=== PATIENT | female | born 1955 | race Caucasian/White ===

== ENCOUNTER 2022-05-28 12:31 | Outpatient (CLI) | payer MEDICARE | END 2022-05-28 12:32 | disposition home or self-care (01) | LOC: CSHCT 12:31 | PROVIDERS: ATTEND Internal Medicine | DX: R51.9 Headache, unspecified (principal); R42 Dizziness and giddiness | CPT/HCPCS: 70450 ==

== ENCOUNTER 2022-11-21 11:27 | Emergency (ER) | payer MEDICARE ==
[2022-11-21] MEDS ORDERED: Meclizine HCl 25 MG TAB ONE (12:15)
[2022-11-21] MEDS ORDERED: Dexamethasone 10 MG/ML VIAL ONE (12:15)
[2022-11-21] MEDS ORDERED: Lorazepam 2 MG/ML VIAL ONE (12:16)
[2022-11-21] MEDS ORDERED: Ondansetron PF 4 MG/2 ML Vial ONE (12:16)
[2022-11-21 12:38] LABS: #Basophils 0.1 10x3/uL (0.0-0.2); #Eosinphils 0.1 10x3/uL (0.0-0.5); #Monocytes 0.4 10x3/uL (0.0-1.1); #Neutrophils 4.4 10x3/uL (1.5-8.4); %Neutrophils 59.7 % (40.0-75.0); Hemoglobin 13.4 g/dL (12.0-15.5); Mean Corpuscular HGB CONC 35.1 g/dL (32.0-36.0); Mean Corpuscular Hemoglobin 30.4 pg (27.0-33.0); Mean Corpuscular Volume 86.6 fl (81.6-98.3); Mean Platelet Volume 10.3 fl (7.4-10.4); Platelet Count 285 10x3/uL (150-450); RBC Distribution Width 12.5 % (11.5-14.5); Red Blood Cell (RBC) Count 4.41 10x6/uL (3.90-5.03); White Blood Cell (WBC) Count 7.3 10x3/uL (3.5-10.5)
[2022-11-21 12:53] LABS: ALT (SGPT) 49 U/L (8-55); AST (SGOT) 31 U/L (5-34); Albumin 4.8 g/dL (3.4-4.8); Alkaline Phosphatase 87 U/L (40-110); Anion Gap 19 mmol/L (10-20); BUN (Urea Nitrogen) 9 mg/dL (9.8-20.1); Bilirubin, Total 0.9 mg/dL (0.2-1.2); CK (CPK) 59 U/L (29-168); Calc. Creatinine Clearance 0 mL/min (70-130); Calcium 10.4 mg/dL (7.8-10.44); Carbon Dioxide 21 mmol/L (23-31); Chloride 104 mmol/L (98-107); Estimated GFR 42; Globulin 2.9 g/dL (2.4-3.5); Glucose 102 mg/dL (80-115); Lipase 15 U/L (8-78); Potassium 4.1 mmol/L (3.5-5.1); Protein, Total 7.7 g/dL (5.8-8.1); Sodium 140 mmol/L (136-145)
[2022-11-21 14:24] LABS: Bilirubin Neg (Negative); Blood, Urine Negative (Negative); Clarity Clear (Clear); Glucose, Urine (Dipstick) Normal (Negative); Ketone, Urine Negative (Negative); Leukocyte Negative (Negative); Nitrite Negative (Negative); Protein, Urine (Dipstick) Negative (Neg-Trace); Urobilinogen Normal mg/dL (Less than 2)
[2022-11-21 14:34] LABS: Bacteria/HPF Rare-Few HPF (None Seen); CAUTI Indications for Culture Pelvic or flank pain; RBC/HPF 0-3 HPF (0-3); Squamous Epithelial 0-3 HPF (0-3); WBC/HPF None Seen HPF (0-3)
[2022-11-21 14:35] LABS: Urine Culture Reflex No No
== END 2022-11-21 14:30 | disposition home or self-care (01) ==
LOC: CSHERS 11:27
DX: R42 Dizziness and giddiness (principal); I10 Essential (primary) hypertension
CPT/HCPCS: 70450; 80053; 81001; 82550; 83690; 84484; 85025; 93005; 96374; 96375; J1100; J2060; J2405

== ENCOUNTER 2022-11-23 11:24 | Emergency (ER) | payer MEDICARE ==
[2022-11-23] MEDS ORDERED: Diazepam 5 MG TAB ONE (12:05)
[2022-11-23] MEDS ORDERED: hydrALAZINE 25 MG TAB ONE (12:06)
[2022-11-23 12:20] LABS: #Basophils 0.1 10x3/uL (0.0-0.2); #Eosinphils 0.1 10x3/uL (0.0-0.5); #Monocytes 1.1 10x3/uL (0.0-1.1); #Neutrophils 9.6 10x3/uL (1.5-8.4); %Basophils 0.5 % (0.0-2.0); %Eosinophils 0.3 % (0.0-6.0); %Lymphocytes 27.6 % (18.0-47.0); Hemoglobin 12.4 g/dL (12.0-15.5); Mean Corpuscular HGB CONC 35.5 g/dL (32.0-36.0); Mean Corpuscular Hemoglobin 30.8 pg (27.0-33.0); Mean Corpuscular Volume 86.6 fl (81.6-98.3); Mean Platelet Volume 10.1 fl (7.4-10.4); Platelet Count 267 10x3/uL (150-450); RBC Distribution Width 12.7 % (11.5-14.5); Red Blood Cell (RBC) Count 4.03 10x6/uL (3.90-5.03)
[2022-11-23 12:43] LABS: ALT (SGPT) 78 U/L (8-55); AST (SGOT) 43 U/L (5-34); Albumin 4.4 g/dL (3.4-4.8); Alkaline Phosphatase 80 U/L (40-110); Anion Gap 17 mmol/L (10-20); BUN (Urea Nitrogen) 22 mg/dL (9.8-20.1); Bilirubin, Total 0.3 mg/dL (0.2-1.2); Calc. Creatinine Clearance 0 mL/min (70-130); Carbon Dioxide 21 mmol/L (23-31); Chloride 106 mmol/L (98-107); Estimated GFR 53; Globulin 3.1 g/dL (2.4-3.5); Glucose 97 mg/dL (80-115); Potassium 3.3 mmol/L (3.5-5.1); Protein, Total 7.5 g/dL (5.8-8.1); Sodium 141 mmol/L (136-145)
[2022-11-23] MEDS ORDERED: Potassium Chloride 20 MEQ TAB ONE (13:59)
== END 2022-11-23 14:07 | disposition home or self-care (01) ==
LOC: CSHERS 11:24
DX: I12.9 Hypertensive chronic kidney disease with stage 1 through stage 4 chronic kidney disease, or unspecified chronic kidney disease (principal); N18.9 Chronic kidney disease, unspecified; R94.5 Abnormal results of liver function studies; D72.829 Elevated white blood cell count, unspecified; E03.9 Hypothyroidism, unspecified
CPT/HCPCS: 36415; 80053; 84484; 85025; 93005

== ENCOUNTER 2022-11-23 16:59 | Observation (INO) | payer MEDICARE ==
[~2022-11-23 16:59] MED LIST: Iopamidol 370 76% 100 ML VIAL ONE
[2022-11-23 17:59] LABS: #Basophils 0.1 10x3/uL (0.0-0.2); #Eosinphils 0.1 10x3/uL (0.0-0.5); #Monocytes 0.8 10x3/uL (0.0-1.1); #Neutrophils 7.5 10x3/uL (1.5-8.4); %Basophils 0.6 % (0.0-2.0); %Eosinophils 0.4 % (0.0-6.0); %Lymphocytes 28.8 % (18.0-47.0); %Monocytes 6.5 % (0.0-10.0); %Neutrophils 63.1 % (40.0-75.0); Hemoglobin 12.5 g/dL (12.0-15.5); Mean Corpuscular HGB CONC 34.2 g/dL (32.0-36.0); Mean Platelet Volume 10.2 fl (7.4-10.4); Platelet Count 269 10x3/uL (150-450); RBC Distribution Width 13.1 % (11.5-14.5); Red Blood Cell (RBC) Count 4.16 10x6/uL (3.90-5.03); White Blood Cell (WBC) Count 11.9 10x3/uL (3.5-10.5)
[2022-11-23 18:08] LABS: ALT (SGPT) 84 U/L (8-55); AST (SGOT) 44 U/L (5-34); Albumin 4.4 g/dL (3.4-4.8); Alkaline Phosphatase 77 U/L (40-110); Anion Gap 17 mmol/L (10-20); BUN (Urea Nitrogen) 17 mg/dL (9.8-20.1); Bilirubin, Total 0.3 mg/dL (0.2-1.2); Calc. Creatinine Clearance 0 mL/min (70-130); Calcium 10.2 mg/dL (7.8-10.44); Carbon Dioxide 21 mmol/L (23-31); Chloride 106 mmol/L (98-107); Estimated GFR 51; Globulin 3.2 g/dL (2.4-3.5); Glucose 111 mg/dL (80-115); Potassium 3.6 mmol/L (3.5-5.1); Protein, Total 7.6 g/dL (5.8-8.1); Sodium 140 mmol/L (136-145)
[2022-11-23] MEDS ORDERED: Meclizine HCl 25 MG TAB ONE (18:52)
[2022-11-23] MEDS ORDERED: Ondansetron PF 4 MG/2 ML Vial ONE ×2 (18:52→18:57)
[2022-11-23] MEDS ORDERED: Ondansetron ODT 4 MG TAB PO PRN (20:18)
[2022-11-23] MEDS ORDERED: Acetaminophen 325 MG TAB PO PRN (20:18)
[2022-11-23] MEDS ORDERED: Acetaminophen 650 MG Suppository PR PRN (20:18)
[2022-11-23] MEDS ORDERED: hydrALAZINE 20 MG/ML VIAL SLOW IVP PRN (20:21)
[2022-11-23] MEDS ORDERED: Meclizine HCl 25 MG TAB PO PRN (20:24)
[2022-11-23 20:51] LABS: Troponin I Less than 0.010 ng/mL (< 0.028)
[2022-11-23] MEDS: Aspirin 81 mg Enteric Coated Tablet PO SCH (23:12)
[2022-11-23 23:25] VITALS: BMI 24.7
[2022-11-23] MEDS: Ondansetron PF 4 MG/2 ML Vial IVP PRN (23:35)
[2022-11-24 00:15] LABS: Troponin I Less than 0.010 ng/mL (< 0.028)
[2022-11-24 04:48] LABS: Anion Gap 15 mmol/L (10-20); BUN (Urea Nitrogen) 15 mg/dL (9.8-20.1); Calc. Creatinine Clearance 52 mL/min (70-130); Calcium 9.6 mg/dL (7.8-10.44); Carbon Dioxide 22 mmol/L (23-31); Cardiac Risk 3.3 (Less than 4.5); Chloride 108 mmol/L (98-107); Cholesterol 186 mg/dl (< 200 Desired); Estimated GFR 55; Glucose 83 mg/dL (80-115); HDL Cholesterol 56 mg/dL (>60 Neg Risk); LDL Cholesterol, Calculated 107 mg/dL; Potassium 4.2 mmol/L (3.5-5.1); Sodium 141 mmol/L (136-145); Triglycerides 116 mg/dL (Less than 150)
[2022-11-24 04:56] LABS: #Basophils 0.1 10x3/uL (0.0-0.2); #Eosinphils 0.1 10x3/uL (0.0-0.5); #Monocytes 0.8 10x3/uL (0.0-1.1); #Neutrophils 6.5 10x3/uL (1.5-8.4); %Basophils 0.6 % (0.0-2.0); %Eosinophils 0.9 % (0.0-6.0); %Lymphocytes 30.4 % (18.0-47.0); %Monocytes 7.6 % (0.0-10.0); %Neutrophils 59.9 % (40.0-75.0); Hemoglobin 11.8 g/dL (12.0-15.5); Mean Corpuscular HGB CONC 34.2 g/dL (32.0-36.0); Mean Corpuscular Hemoglobin 30.2 pg (27.0-33.0); Mean Corpuscular Volume 88.2 fl (81.6-98.3); Mean Platelet Volume 10.4 fl (7.4-10.4); Platelet Count 257 10x3/uL (150-450); RBC Distribution Width 13.1 % (11.5-14.5); Red Blood Cell (RBC) Count 3.91 10x6/uL (3.90-5.03); White Blood Cell (WBC) Count 10.8 10x3/uL (3.5-10.5)
[2022-11-24] MEDS ORDERED: Acetaminophen 325 MG TAB ONE (07:39)
[2022-11-24] MEDS ORDERED: Ondansetron PF 4 MG/2 ML Vial ONE (07:41)
[2022-11-24] MEDS ORDERED: Meclizine HCl 25 MG TAB ONE (07:41)
[2022-11-24] MEDS: Ondansetron PF 4 MG/2 ML Vial IVP PRN (08:02)
[2022-11-24] MEDS ORDERED: Meclizine HCl 12.5 MG TAB PO PRN (09:17)
[2022-11-24] MEDS ORDERED: diphenhydrAMINE 25 MG CAP PO PRN (10:06)
[2022-11-24 16:50] LABS: Hemoglobin A1c 5.2 % (4.0-6.0)
[2022-11-24] MEDS: Aspirin 81 mg Enteric Coated Tablet PO SCH (20:41)
[2022-11-24] MEDS ORDERED: Atorvastatin Calcium 40 MG TAB PO SCH (21:00)
[2022-11-25 05:01] LABS: AST (SGOT) 22 U/L (5-34); Albumin 3.8 g/dL (3.4-4.8); Alkaline Phosphatase 65 U/L (40-110); Anion Gap 16 mmol/L (10-20); BUN (Urea Nitrogen) 14 mg/dL (9.8-20.1); Bilirubin, Total 0.5 mg/dL (0.2-1.2); Calc. Creatinine Clearance 50 mL/min (70-130); Calcium 9.3 mg/dL (7.6-10.4); Carbon Dioxide 22 mmol/L (23-31); Chloride 106 mmol/L (98-107); Estimated GFR 52; Globulin 2.7 g/dL (2.4-3.5); Glucose 85 mg/dL (80-115); Potassium 3.9 mmol/L (3.5-5.1); Protein, Total 6.5 g/dL (5.8-8.1); Sodium 140 mmol/L (136-145)
[2022-11-25 05:02] LABS: ALT (SGPT) 52 U/L (8-55)
[2022-11-25] MEDS ORDERED: Levothyroxine Sodium 75 MCG TAB PO SCH (06:00)
[2022-11-25 07:11] VITALS: TEMP 99.2
[2022-11-25 08:32] VITALS: BP 126/80
[2022-11-25] MEDS ORDERED: Losartan Potassium 50 MG TAB PO SCH (09:00)
[2022-11-25] MEDS ORDERED: Anastrozole 1 MG TAB PO SCH (09:00)
== END 2022-11-25 11:18 | disposition home or self-care (01) ==
LOC: CSHERS 16:59 → CSHERHOLD 18:21 → CSHTELE 11-24 20:21
PROVIDERS: ADMIT Internal Medicine; ATTEND Family Medicine
DX: R42 Dizziness and giddiness (principal); I10 Essential (primary) hypertension; D72.829 Elevated white blood cell count, unspecified; N17.9 Acute kidney failure, unspecified; E03.9 Hypothyroidism, unspecified; C50.919 Malignant neoplasm of unspecified site of unspecified female breast; F41.9 Anxiety disorder, unspecified; Z88.0 Allergy status to penicillin; Z88.2 Allergy status to sulfonamides; Z88.1 Allergy status to other antibiotic agents; Z88.6 Allergy status to analgesic agent; Z90.49 Acquired absence of other specified parts of digestive tract; Z79.82 Long term (current) use of aspirin; Z79.899 Other long term (current) drug therapy; Z79.890 Hormone replacement therapy
CPT/HCPCS: 70450; 70496; 70498; 70551; 71045; 80048; 80053 ×3; 80061; 83036; 84443; 84484 ×2; 85025 ×3; 93005; 93306; 96372; 96374; 97116; 97535; 99283; 99285; G0378 ×4; 36415; J1650; J2405; Q9967

== ENCOUNTER 2025-01-18 15:41 | Emergency (ER) | payer MEDICARE ==
[2025-01-18] MEDS ORDERED: Metoclopramide HCl 10 MG (2 mL) VIAL ONE (16:21)
[2025-01-18 16:28] LABS: #Basophils 0.06 10x3/uL (0.0-0.2); #Eosinophils 0.10 10x3/uL (0.0-0.5); #Monocytes 0.46 10x3/uL (0.0-1.1); #Neutrophils 4.61 10x3/uL (1.5-8.4); %Basophils 0.9 % (0.0-2.0); %Eosinophils 1.4 % (0.0-6.0); %Lymphocytes 25.3 % (18.0-47.0); %Monocytes 6.5 % (0.0-10.0); %Neutrophils 65.6 % (40.0-75.0); Hematocrit 35.8 % (34.9-44.5); Hemoglobin 12.5 g/dL (12.0-15.5); Mean Corpuscular Hemoglobin 30.1 pg (27.0-33.0); Mean Corpuscular Volume 86.3 fL (81.6-98.3); Platelet Count 266 10x3/uL (150-450); Red Blood Cell (RBC) Count 4.15 10x6/uL (3.90-5.03); White Blood Cell (WBC) Count 7.03 10x3/uL (3.5-10.5)
[2025-01-18 16:45] LABS: ALT (SGPT) 17 U/L (Less than 34); AST (SGOT) 21 U/L (11-34); Albumin 4.5 g/dL (3.1-4.5); Alkaline Phosphatase 84 U/L (40-110); Anion Gap 16 mmol/L (10-20); BUN (Urea Nitrogen) 10 mg/dL (9.8-20.1); Bilirubin, Total 0.3 mg/dL (0.3-1.2); Calc. Creatinine Clearance 0 mL/min (70-130); Calcium 10.2 mg/dL (7.8-10.44); Carbon Dioxide 25 mmol/L (23-31); Chloride 103 mmol/L (98-107); Globulin 3.2 g/dL (2.4-3.5); Glucose 109 mg/dL (80-115); Lipase 39 U/L (8-78); Potassium 4.7 mmol/L (3.5-5.1); Sodium 139 mmol/L (136-145)
[2025-01-18 16:48] LABS: Troponin I Less than 0.010 ng/mL (< 0.028)
[2025-01-18 17:03] LABS: Glucose, Urine (Dipstick) Normal (Negative); Leukocyte Negative (Negative); Protein, Urine (Dipstick) Negative (Neg-Trace); Specific Gravity, Urine 1.010 (1.005-1.030)
[2025-01-18 17:22] LABS: CAUTI Indications for Culture Alt mental st,lethar; WBC/HPF None Seen HPF (0-3)
[2025-01-18 17:23] LABS: Bacteria/HPF Rare-Few HPF (None Seen); RBC/HPF 0-3 HPF (0-3)
[2025-01-18 17:24] LABS: Urine Culture Reflex No No
== END 2025-01-18 17:47 | disposition home or self-care (01) ==
LOC: CSHERS 15:41
DX: R11.0 Nausea (principal); I10 Essential (primary) hypertension
CPT/HCPCS: 80053; 81001; 83690; 84484; 85025; 93005; J2765; 96374

== ENCOUNTER 2025-02-20 09:45 | Outpatient (CLI) | payer MEDICARE | END 2025-02-20 09:46 | disposition home or self-care (01) | LOC: CSHULT 09:45 | PROVIDERS: ATTEND Internal Medicine Gastroenterology | DX: R63.0 Anorexia (principal); R63.4 Abnormal weight loss; R11.0 Nausea; Z90.49 Acquired absence of other specified parts of digestive tract; N28.1 Cyst of kidney, acquired | CPT/HCPCS: 76700 ==